=== PATIENT | male | born 1980 | race Caucasian/White ===

== ENCOUNTER 2022-04-13 22:51 | Emergency (ER) | payer OTHER, BC, MEDICAID ==
[2022-04-13] MEDS ORDERED: Acetaminophen 500 MG Tab PO ONE (23:51)
[2022-04-13] MEDS ORDERED: Sodium Chloride 0.9% 1,000 ML IV ONE (23:51)
[2022-04-14 00:15] LABS: ESTIMATED GFR 96 mL/min (>60)
[2022-04-14 00:52] LABS: CORONAVIRUS COVID-19 NAA NEGATIVE (NEGATIVE)
[2022-04-14] MEDS ORDERED: Potassium Chloride 20 MEQ Tab.ER PO ONE (01:15)
== END 2022-04-14 01:35 | disposition home or self-care (01) ==
LOC: SUPCPDRO 22:51 → FB.ED 22:51
DX: E86.0 Dehydration (principal); B97.4 Respiratory syncytial virus as the cause of diseases classified elsewhere; D72.821 Monocytosis (symptomatic); E87.6 Hypokalemia; R79.82 Elevated C-reactive protein (CRP); R79.89 Other specified abnormal findings of blood chemistry; Z88.0 Allergy status to penicillin; Z88.8 Allergy status to other drugs, medicaments and biological substances; Z20.822 Contact with and (suspected) exposure to COVID-19
CPT/HCPCS: 0241U; 36415; 80053; 85025; 86140; 96360; 99283; A9270; J7030